=== PATIENT | female | born 1985 | race African-American/Black ===

== ENCOUNTER 2018-07-12 00:40 | Emergency (ER) | payer OTHER ==
[2018-07-12 01:00] VITALS: BP 141/89
--- NOTE | 2018-07-12 01:49 | ED Physician Documentation ---
Skin Rash - HPI Stated Complaint: RASH Chief Complaint: Skin Rash Onset: hours Timing: worse Duration: worse Location: other (hands and feet) Identified Cause?: No Further Comments: yes (33 year old female patient presents with complaint of rash on hands between fingers and feet between toes. Patient states the rash on her feet is spreading. Reports symptoms started yesterday. She works at local [employer], just got off work. C/O severe itching) - ROS CONST: none CVS/RESP: none EYES/ENT: none GI/: none MS/SKIN/LYMPH: none NEURO/PSYCH: none - PAST HX Past History: none Allergies/Adverse Reactions: Allergies Allergy/AdvReac Type Severity Reaction Status Date / Time No Known Allergies Allergy Verified 07/12/18 01:01 Home Medications: Ambulatory Orders Medication Instructions Recorded Permethrin [Elimite] 60 gm TP NOW #1 cream..g. 07/12/18 - SOCIAL HX Smoking History: cigarettes - FAMILY HX Family History: denies: none - VITAL SIGNS Vital Signs: Vital Signs Temp Pulse Resp BP Pulse Ox 98.6 F 72 16 141/89 96 07/12/18 00:40 07/12/18 01:55 07/12/18 01:55 07/12/18 00:40 07/12/18 01:55 - REVIEWED ASSESSMENTS Nursing Assessment Reviewed: Yes Vitals Reviewed: Yes Progress - Progress Progress: Patient education on treatment of scabies; verbalized understanding. Skin Rash Physical Exam - EXAM General Appearance: mild distress Skin: warm,dry, skin rash Location: other (between fingers; between toes and on right foot) Character: maculopapular, linear Respiratory: no resp distress CVS: reg. rate & rhythm Neuro/Psych: oriented x3, CN's nml as tested, motor nml, sensation nml, mood/affect nml Discharge Clincal Impression: Scabies Prescriptions: Permethrin [Elimite] 60 gm TP NOW #1 cream..g. Referrals: Primary Doctor,No [Primary Care Provider] - 2 Days Additional Instructions: How did I get scabies?You probably caught scabies from someone else who has it. The condition spreads easily between people who are in close contact. It is also possible to catch scabies from the clothes of someone with the condition. Treatment - Permethrin cream is applied over the entire body and left on for 8- 12 hours, then rinse off. Itching - Nonsedating antihistamines, such as loratadine (Claritin) or cetirizine (Zyrtec), are generally recommended during the day while sedating antihistamines (eg,diphenhydramine/Benadryl)can help to control itching and improve sleep at night. Use Benadryl 25-50mg every 6 hours as needed for itching. You may return to work/school the day after you complete your permethrin treatment. Although scabies is less frequently spread by touching the clothing or bedsheets of an infected person, it is still a good idea to wash or isolate any clothing, bedding, towels, pajamas, underwear, or stuffed animals that the person has touched within three days before treatment. It is not usually necessary to wash other items. Reasonable options for eliminating mites from these items include placing them in plastic bags for at least three days, machine washing and then ironing or drying in an electric dryer on the hot setting, or dry cleaning. Condition: Stable Disposition: 01 HOME, SELF-CARE Decision to Admit: NO Decision Time: 01:50
== END 2018-07-12 01:55 | disposition home or self-care (01) ==
LOC: ED 00:40
DX: B86 Scabies (principal)
CPT/HCPCS: 99283

== ENCOUNTER 2019-01-09 09:47 | Emergency (ER) | payer OTHER ==
[2019-01-09 10:54] VITALS: BP 150/77
--- NOTE | 2019-01-09 11:03 | ED Physician Documentation ---
Upper Respiratory Symptoms - HISTORIAN Historian: patient - HPI Stated Complaint: cough/congestion Chief Complaint: Upper Respiratory Symptoms Onset: days ago (7) Context: denies: recent foreign travel, insect bite(s), recent chemotherapy, multiple patients Severity: moderate Associated Symptoms: fever, chills, runny nose, sinus pain Worsened by Deep Breath: No Further Comments: yes (33 year old female patient presents with complaint of cough, body aches, congestion, ear pain and sore throat. Patient reports being exposed to influenza. Symptoms started 1 week ago, using dayquil, nyquil and mucinex at home. Denies N/V or diarrhea.) - ROS CONST/EYES: denies: weakness, eye redness, eye itching, other CVS/RESP: none LYMPH: denies: leg swelling, rash, swollen glands, ankle swelling, other GI/: none NEURO/PSYCH: denies: fainting, dizziness, confusion, anxiety, depression, other MS/SKIN: denies: joint pain, muscle aches, rash, other - PAST HX Lung Disease: none Surgeries/Procedures: none Allergies/Adverse Reactions: Allergies Allergy/AdvReac Type Severity Reaction Status Date / Time No Known Allergies Allergy Verified 01/09/19 10:54 Home Medications: Ambulatory Orders Medication Instructions Recorded NK 01/09/19 - SOCIAL HX Smoking History: cigarettes - FAMILY HX Family History: denies: none - VITAL SIGNS Vital Signs: Vital Signs Temp Pulse Resp BP Pulse Ox 99.0 F 95 H 16 150/77 98 01/09/19 09:47 01/09/19 09:47 01/09/19 09:47 01/09/19 09:47 01/09/19 09:47 - REVIEWED ASSESSMENTS Nursing Assessment Reviewed: Yes Vitals Reviewed: Yes Progress - Progress Progress: Education on viral treatment and plan of care - verbalized understanding. ED Results Lab/Radiology - Orders Orders: ED Orders Category Date Time Status INFLUENZA A&B Stat Lab 01/09/19 10:26 Ordered Upper Respiratory Symptoms - EXAM General Appearance: no acute distress, alert EENT: eyes nml inspection, nml ENT inspection, lids & conjunct. nml, PERRL, ear nml, rhinorrhea, pharynx nml, airway nml. No: pharyngeal erythema, tonsillar exudate Respiratory: no resp. distress, breath sounds nml, no pain on inspiration, speaks full sentences, no pleuritic chest pain Abdomen: non-tender, no organomegaly, nml bowel sounds, no distention CVS: reg rate & rhythm, heart sounds normal, equal pulses, no murmur, no gallop, PMI nml, no JVD, no friction rub, 24 Skin: color nml, no rash, warm,dry Neuro/Psych: oriented x3, neuro intact, mood/affect nml, CN's nml as tested Discharge Clincal Impression: Viral syndrome Referrals: Primary Doctor,No [Primary Care Provider] - 2 Days Additional Instructions: Treat your symptoms with over the counter medication. 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 You may want to try Vicks rub on your chest and/or feet. (Caution: Dayquil and Nyquil contain 325mg of tyelnol/acetaminophen per tablespoon) Cough drops as needed for cough and sore throat. Increase your fluid intake juices, hot tea, non-caffeinated beverages Vitamin C may be helpful in decreasing the length of your cold. Use a humidifier in the room where you sleep. You can also sit in a steam filled bathroom 1-2 times a day. Tylenol every 4 hours 650mg -1000mg (do not exceed 4000mg in 24 hours) as needed for fever, pain and body aches. Alternate with Ibuprofen Ibuprofen 600-800mg every 6 hours as needed for fever, pain and body aches. See your primary care doctor if your symptoms become worse or do not improve in the next 2-3 days. Condition: Stable Disposition: 01 HOME, SELF-CARE Decision to Admit: NO Decision Time: 11:02
[2019-01-09] MEDS: IBUPROFEN 400 MG TABLET PO ONE (11:17)
[2019-01-09] MEDS: ACETAMINOPHEN 500 MG TABLET PO ONE (11:17)
== END 2019-01-09 11:24 | disposition home or self-care (01) ==
LOC: ED 09:47
DX: B34.9 Viral infection, unspecified (principal); Z72.0 Tobacco use
CPT/HCPCS: 87400; 99283